=== PATIENT | male | born 1985 | race Caucasian/White ===

== ENCOUNTER 2018-03-27 04:08 | Emergency (ER) | payer MEDICAID ==
[~2018-03-27] VITALS: Ht 160 cm; Wt 65.0 kg
[2018-03-27 05:11] LABS: BASOPHILS % 0.3 % (0.0-2.0); EOSINOPHILS % 1.9 % (0.0-5.0); HEMATOCRIT. 39.6 % (42.0-52.0); HEMOGLOBIN. 13.7 g/dL (14.0-18.0); LYMPHOCYTES % 36.9 % (20.0-50.0); MEAN CORPUSCULAR HEMOGLOBIN 31.5 pg (28.0-32.0); MEAN CORPUSCULAR VOLUME 91.6 fL (80.0-94.0); MEAN PLATELET VOLUME 7.7 fl (7.4-10.4); MONOCYTES % 7.9 % (2.0-8.0); PLATELET 206 x1000/uL (130-400); RED BLOOD CELL COUNT 4.33 mill/uL (4.7-6.1); RED CELL DISTRIBUTION WIDTH 13.5 % (11.6-14.6)
[2018-03-27 05:13] LABS: CHLORIDE 105 mEq/L (98-107)
[2018-03-27 05:28] LABS: D-DIMER < 0.19 mg/L FEU (<0.50); INR 1.1; PROTHROMBIN TIME 11.1 sec (9.4-11.6)
[2018-03-27 13:09] VITALS: BP 119/66
== END 2018-03-27 13:12 | disposition home or self-care (01) ==
LOC: ER 04:08
DX: R00.2 Palpitations (principal); I45.10 Unspecified right bundle-branch block; Z98.1 Arthrodesis status
CPT/HCPCS: 36415; 71045; 80053; 83880; 84443; 84484; 85025; 85379; 85610; 93005; 99285; Z7610

== ENCOUNTER 2020-03-05 16:40 | Emergency (ER) | payer MEDICAID ==
[~2020-03-05] VITALS: Ht 165.1 cm; Wt 58.0 kg
[2020-03-05] MEDS ORDERED: KETOROLAC 60MG/2ML VIAL IM ONE (18:30)
[2020-03-05 18:50] VITALS: BP 100/59
== END 2020-03-05 19:26 | disposition home or self-care (01) ==
LOC: ER 16:40
DX: L55.0 Sunburn of first degree (principal)
CPT/HCPCS: 96372; 99283; J1885